=== PATIENT | male | born 1995 | race Caucasian/White ===

== ENCOUNTER 2018-01-25 17:18 | Emergency (ER) | payer OTHER ==
[~2018-01-25] VITALS: Ht 165.1 cm; Wt 56.2 kg
[2018-01-25 17:29] VITALS: Ht 165.1 cm; Wt 56.2 kg
[2018-01-25 20:41] LABS: BASOPHIL % 0.7 % (0-2); PLATELET COUNT 251 x10^3mcL (130-400); RED CELL DISTRIBUTION WIDTH 12.9 % (11.5-14.5)
[2018-01-25 20:59] LABS: CALCIUM 8.7 mg/dL (8.5-10.1); CHLORIDE SERUM 102 mmol/L (98-107); CREATININE SERUM 0.9 mg/dL (0.7-1.3); GFR1 > 60 mL/min; GLUCOSE SERUM 80 mg/dL (74-106); SODIUM SERUM 139 mmol/L (136-145)
[2018-01-25 21:04] LABS: ALBUMIN 3.9 g/dL (3.4-5.0); ALKALINE PHOSPHATASE 61 U/L (46-116); ALT/SGPT 123 U/L (16-63); AST/SGOT 45 U/L (15-37); BILIRUBIN TOTAL 0.68 mg/dL (0.20-1.00); TOTAL PROTEIN, SERUM 7.1 g/dL (6.4-8.2)
[2018-01-25 21:06] LABS: POTASSIUM SERUM 3.7 mmol/L (3.5-5.1)
[2018-01-25 22:06] VITALS: BP 105/73
== END 2018-01-25 22:06 | disposition home or self-care (01) ==
LOC: ED 17:18
PROVIDERS: Emergency Medicine
DX: R19.7 Diarrhea, unspecified (principal); R51 Headache; J02.9 Acute pharyngitis, unspecified; R05 Cough; R19.5 Other fecal abnormalities; R11.0 Nausea; R42 Dizziness and giddiness; R50.9 Fever, unspecified
CPT/HCPCS: J1885; J2405; J7030

== ENCOUNTER 2018-04-23 12:07 | Emergency (ER) | payer SELFPAY ==
[~2018-04-23] VITALS: Ht 165.1 cm; Wt 60.3 kg
[2018-04-23 12:17] VITALS: BP 121/39; Ht 165.1 cm; Wt 60.3 kg
== END 2018-04-23 14:52 | disposition home or self-care (01) ==
LOC: ED 12:07
DX: S50.851A Superficial foreign body of right forearm, initial encounter (principal); W25.XXXA Contact with sharp glass, initial encounter; Y93.89 Activity, other specified; Y92.89 Other specified places as the place of occurrence of the external cause; Y99.8 Other external cause status
CPT/HCPCS: J2001